=== PATIENT | male | born 1975 | race Caucasian/White ===

== ENCOUNTER 2020-03-13 17:01 | Emergency (ER) | payer MEDICAID, SELFPAY ==
--- NOTE | ~2020-03-13 | XR_ITS ---
EXAMINATION: XR wrist RT min 3V INDICATION: Right wrist pain TECHNIQUE: Four views of the right wrist are obtained. 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 No fracture is identified. Bone alignment is normal. The soft tissues are unremarkable. IMPRESSION: 1. No acute osseous abnormality. Reviewed, dictated and finalized at location A. CARDIOGRAPH TECH
[2020-03-13 17:03] VITALS: BP 162/108; PULSE 96; RESP 16; TEMP 36.4; O2SAT 99
--- NOTE | 2020-03-13 19:11 | ED.UPPEXIN ---
HPI - Extremity Injury (Upper) General Chief Complaint: Extremity Injury, Upper Stated Complaint: r hand pain Time Seen by Provider: 03/13/20 18:25 Source: patient Mode of arrival: ambulatory Limitations: no limitations History of Present Illness HPI narrative: This is a 45-year-old male that presents the emergency department for right wrist pain x1 month. Unsure of any certain injury or trauma. 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 Reports pain on the radial side of the wrist that is worse with movement. Denies decreased range of motion or numbness. Related Data Allergies Allergy/AdvReac Type Severity Reaction Status Date / Time bacitracin Allergy Intermediate Hypotension Unverified 03/13/20 17:06 neomycin Allergy Intermediate Hypotension Unverified 03/13/20 17:06 polymyxin B Allergy Intermediate Hypotension Unverified 03/13/20 17:06 Review of Systems Review of Systems: Narrative: CONSTITUTIONAL: Denies fever SKIN: Denies rash MUSCULOSKELETAL: Reports joint pain, and myalgia. NEUROLOGIC: Denies numbness All systems reviewed & are unremarkable except as noted in HPI and below PMFSH Past Medical History Medical History (Updated 03/13/20 @ 19:19 by Brenda Coto PA-C) No active medical problems Social History Social History (Updated 03/13/20 @ 19:13 by Brenda Coto PA-C) Smoking status: Current every day smoker Gender identity (if verbalized by the patient): Male Exam Narrative: Exam Narrative: GENERAL: Well-appearing, well-nourished, and in no acute distress. HEAD: Normocephalic, atraumatic. EYES: EOMI. EXTREMITIES: Normal range of motion. No edema, erythema or obvious deformity. Pain with palpation of the radial side of the right wrist and with active range of motion of the wrist. Normal sensation. Normal radial pulses SKIN: Warm, dry, no rash. NEURO: No focal deficits. Alert and oriented x3. PSYCH: Normal mood and affect Course Vital Signs Vital signs: Vital Signs Temperature 97.5 F L 03/13/20 17:03 Pulse Rate 96 03/13/20 17:03 Respiratory Rate 16 03/13/20 17:03 Blood Pressure 162/108 H 03/13/20 17:03 Pulse Oximetry 99 03/13/20 17:03 Temperature 97.5 F L 03/13/20 17:03 Pulse Rate 96 03/13/20 17:03 Respiratory Rate 16 03/13/20 17:03 Blood Pressure 162/108 H 03/13/20 17:03 Pulse Oximetry 99 03/13/20 17:03 MDM - Extremity Injury (Upper) MDM Narrative Medical decision making narrative: Patient presents the emergency department for right wrist pain present for the last month. No certain injury or trauma. Right wrist x-ray is without acute osseous abnormalities. Patient was instructed to rest, ice and take [id number] pain medication as needed. Will be given orthopedics for follow-up. Was given warnings to return to the ER Imaging Data Radiologist's impression: ITS Impressions Wrist X-Ray 03/13/20 18:48 IMPRESSION: 1. No acute osseous abnormality. Critical Care Time Critical Care Time Critical Care Time: No Discharge Plan Discharge Clinical Impression: Acute pain of right wrist Patient Disposition: Home, Self-Care Condition: Stable Instructions: Wrist Injury (ED) Additional Instructions: Return to the emergency department if you experience fever, redness and swelling of your arm, numbness, or any other symptoms that are concerning to you Rest. Elevate. Ice to the area. [id number] pain medication as needed Follow-up with orthopedics. Call to make an appointment Follow-up/Referrals: Luiz Leal MD [Physician] - 3 Days PHYSICIAN,SECURITY SYSTEMS ENGINEER [Primary Care Provider] -
== END 2020-03-13 19:31 | disposition home or self-care (01) ==
PROVIDERS: Emergency Provider Emergency Medicine
DX: M25.531 Pain in right wrist (principal); F17.200 Nicotine dependence, unspecified, uncomplicated
CPT/HCPCS: 73110; 99283

== ENCOUNTER 2020-09-06 09:41 | Emergency (ER) | payer OTHER, SELFPAY ==
--- NOTE | ~2020-09-06 | XR_ITS ---
EXAMINATION: [id number] INDICATION: Right-sided chest pain, initial encounter TECHNIQUE: A frontal view of the chest and 3 views of the right ribs were obtained. COMPARISON: None. FINDINGS: The lungs are free of acute opacities. There is no pleural effusion or pneumothorax. The ca rdiomediastinal silhouette is normal. There is an acute fracture at the anterior aspect of the right ninth rib. IMPRESSION: 1. Acute right ninth rib fracture. Reviewed, dictated and finalized at location A.
--- NOTE | ~2020-09-06 | XR_ITS ---
EXAMINATION: XR lumbar spine 2-3V DATE: 09/06/2020 10:44 INDICATION: Low back pain TECHNIQUE: Anteroposterior and lateral views of the lumbar spine, and cone-down lateral view of the l umbosacral junction were obtained. COMPARISON: None. FINDINGS: There is no fracture. There are 3 mm of retrolisthesis of L5 on S1. The vertebral body heig hts are maintained. There is severe loss of intervertebral disc space height at L5-S1. Calcified athe rosclerosis is noted. IMPRESSION: 1. Moderate lumbar spondylosis at L5-S1 without acute findings. Reviewed, dictated and finalized at location A.
[2020-09-06 09:53] VITALS: BP 148/85; PULSE 95; RESP 16; TEMP 36.9; O2SAT 98
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
== END 2020-09-06 11:20 | disposition home or self-care (01) ==
PROVIDERS: Emergency Provider Nurse Practitioner Family; PCP Physician Assistant
DX: S22.31XA Fracture of one rib, right side, initial encounter for closed fracture (principal); W11.XXXA Fall on and from ladder, initial encounter; M47.816 Spondylosis without myelopathy or radiculopathy, lumbar region; Z87.891 Personal history of nicotine dependence
CPT/HCPCS: 71101; 72100; 99214; G0463

== ENCOUNTER 2023-11-19 08:22 | Emergency (ER) | payer OTHER, SELFPAY ==
[2023-11-19 08:31] VITALS: BP 146/89; PULSE 97; RESP 19; TEMP 36.7; O2SAT 99
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
[2023-11-19] MEDS: methylPREDNISolone SOD SUCC 125 MG VIAL IM (08:46)
== END 2023-11-19 09:00 | disposition home or self-care (01) ==
PROVIDERS: Emergency Provider Nurse Practitioner; PCP Physician Assistant
DX: L23.7 Allergic contact dermatitis due to plants, except food (principal); F17.210 Nicotine dependence, cigarettes, uncomplicated; F12.90 Cannabis use, unspecified, uncomplicated; H54.61 Unqualified visual loss, right eye, normal vision left eye
CPT/HCPCS: 96372; 99213; G0463; J2919

== ENCOUNTER 2024-07-02 10:35 | Emergency (ER) | payer OTHER, SELFPAY ==
[2024-07-02 10:43] VITALS: BP 148/88; PULSE 98; RESP 18; TEMP 36.3; O2SAT 99
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
== END 2024-07-02 11:30 | disposition short-term general hospital (02) ==
PROVIDERS: Emergency Provider Nurse Practitioner Family; PCP Physician Assistant
DX: R10.31 Right lower quadrant pain (principal); F17.210 Nicotine dependence, cigarettes, uncomplicated; F12.90 Cannabis use, unspecified, uncomplicated; H54.61 Unqualified visual loss, right eye, normal vision left eye
CPT/HCPCS: 99212; G0463

== ENCOUNTER 2024-07-02 12:10 | Emergency (ER) | payer OTHER, SELFPAY ==
--- NOTE | ~2024-07-02 | CT_ITS ---
EXAMINATION: CT abdomen pelvis w con DATE: 07/02/2024 14:24 INDICATION: Right lower quadrant abdominal pain TECHNIQUE: Computed tomography (CT) of the abdomen and pelvis was performed with 100 mL Omnipaque-350 intravenous contrast. Automated exposure control and iterative reconstruction technique were employe d. The dose-length product was 1106.07 mGy-cm. COMPARISON: None FINDINGS: Mild discoid atelectasis at the lingula. Heart size is normal. Small amount of atelectatic coronary a rtery calcium. No pericardial or pleural effusion. Liver, gallbladder, spleen, pancreas, bilateral ad renal glands and kidneys are normal. Bowels including the appendix are normal. Bladder is normal. No free intraperitoneal gas or fluid. No pathologically enlarged abdominal or pelvic lymphadenopathy. Mi ld to moderate lower thoracic, mild lumbar and moderate to severe lumbosacral spondylosis. IMPRESSION: 1. No acute intra-abdominal/pelvic process. Specifically the appendix is normal. Reviewed, dictated and finalized at location A. IMPRESSION: 1. No acute intra-abdominal/pelvic process. Specifically the appendix is normal .
--- OUTSIDE RECORDS SUMMARY | 2024-07-02 12:12 | XMS_ITS | Clinical Summary ---
Author Organization [facility] Address [facility] [place] [address] Care Team Providers Care Senior Investigator Name Role Phone Unavailable Primary Care Provider Unavailabl e Immunizations Immunization Administration Dates Next Due PFIZER COVID-19 (ORIGINAL FO RMULATION, PURPLE CAP) mRNA, LNP-S, PF, 30 MCG/0.3 ML DOSE 06/17/2020,05/28/2020 Social History Tobacco Use Types Packs/Day Years Used Date Smoking Tobacco: Never Assessed Sex and Gender Information Value Date Recorded Sex Assigned at Not on file Legal Sex Male 4:05 PM CDT Gender Identity Not on file Sexual Orientation Not on file Plan of Treatment Health Maintenance Due Date Last Done Comments Colorectal Cancer Screening Colonoscopy (10 Years) 1977 Annual Physical 01/04/1980 Hepatitis C 1995 DTaP, Tdap and Td Vaccines ( 1 - Tdap) 01/04/1996 Hepatitis B Vaccines (1 of 3 - 19+ 3-dose series) 01/04/1996 COVID-19 Vaccine (3 - 2023-2 5 season) 2023 06/17/2020, 05/28/2020 Meningococcal B Vaccine Aged Out No l onger eligible based on patient's age to complete this topic Meningococcal Vaccine Aged Out No tayler era eligible based on patient's age to complete this topic Pneumococcal Vaccine: Pediatrics (0 to 5 Years) and At-Risk Patients (6 to 49 Years) Aged Out No longer eligible b ased on patient's age to complete this topic RSV Immunizations Under 20 Months Aged Out No longer eligible b ased on patient's age to complete this topic
--- OUTSIDE RECORDS SUMMARY | 2024-07-02 12:12 | XMS_ITS | Continuity of Care Document ---
Author Organization [facility] Address [address] [place] [id number] Phone Care Team Providers Care Pet Groomer Name Role Phone Administrative, Provider Unavailable Unavail able Procedures Procedure Date Work/Medical Disability Exam [employer] 2016 Advance Directives Directive Yes / No Effective Date File Name No Information Encounters Encounter Description Practice Location Reason(s) For Visit Diagnoses Date Provider Providers Copied on Encounter [facility], [address] [place] [address], [id number], tel:[phone] [facility] Other cervical disc degeneration of cervical regionOther intervertebral disc degeneration of lumbar region 7 Administrati ve Provider. [address] [place] [address], [place] [address], [place], [place], [address] [place] [address], . tel:[phone] Referring Provider: Michel Rodriguez, [address] [place] [address], [place], [address] . tel:[phone] Family History Family Member Type Diagnosis Age At Onset No Information Payers Payer name Insurance type Covered constitution party ID Authoriza tion(s) [facility] [id number] Social History Type Description Quantity Date Captured Comments Alcohol Use Details Unknown Caffeine Use Details Unknown Tobacco Use Status No Information Smoking Status No Information Sex Male Chief Complaint And Reason For Visit No Information Reason For Referral Reason For Referral No Information History Of Present Illness Encounter Date Complaint History Of Prese nt Illness No Information Functional Status Date Functional Assessmen t No Information Instructions Date Instruction Additional Infor mation No Information Assessments Type Assessment Date assessment Other cervical disc degeneration of cervical region assessment Other intervertebral disc degene ration of lumbar region Patient Care Teams Name Effective Dates (start - stop) Status Members No Information
[2024-07-02 12:31] LABS: Add Urine Microscopic? NO; Appearance Urine Clear (Clear); Basophils Absolute Auto 0.1 K/mm3 (0.0-0.1); Basophils Percent Auto 1.3 % (0.2-1.2); Bilirubin Urine Negative (Negative); Blood Urine Negative (Negative); Color Urine Yellow (Yellow); Eosinophils Absolute Auto 0.3 K/mm3 (0-0.3); Eosinophils Percent Auto 3.2 % (0-4.4); Glucose Urine UA Negative (Negative); Hematocrit 47.4 % (42.0-52.0); Hemoglobin 15.5 g/dL (14.0-18.0); Immature Granulocyte Absolute 0.02 K/mm3 (0.00-0.031); Immature Granulocyte Percent A 0.2 % (0-0.5); Ketones Urine Negative (Negative); Leukocyte Esterase Ur Negative LEU/UL (Negative); Lymphocytes Absolute Auto 2.93 K/mm3 (0.9-3.2); Lymphocytes Percent Auto 31.9 % (18.3-44.2); Mean Corpuscular HGB Conc 32.7 g/dl (32-36); Mean Corpuscular Hemoglobin 28.4 pg (26-34); Mean Platelet Volume 9.8 fl (7.4-10.4); Monocytes Absolute Auto 0.6 K/mm3 (0.1-0.6); Monocytes Percent Auto 6.8 % (2.6-8.5); Neutrophils Absolute Auto 5.2 K/mm3 (1.3-6.7); Neutrophils Percent Auto 56.6 % (45.5-73.1); Nitrate Urine Negative (Negative); Platelet Count Result 341 k/mm3 (150-375); Protein Urine Negative (Negative); Red Blood Count 5.45 M/mm3 (4.6-6.20); Red Cell Distribution Width 13.6 % (11.5-14.5); Specific Grav Ur 1.018 (1.001-1.035); Urobilinogen Urine 0.2 mg/dL (<2.0); White Blood Count 9.2 K/mm3 (4.5-10.0)
[2024-07-02 12:57] LABS: Alanine Aminotransferase 39 U/L (6-50); Albumin Level 4.5 g/dL (3.5-5.1); Alkaline Phosphatase 81 U/L (38-126); Anion Gap 9 mmol/L (4-12); Aspartate Amino Transferase 37 U/L (17-59); Bilirubin,Total 0.3 mg/dL (0.2-1.3); Blood Urea Nitrogen 15 mg/dL (9-20); Calcium 8.7 mg/dL (8.4-10.2); Carbon Dioxide 26 mmol/L (22-30); Chloride 103 mmol/L (98-107); Estimated Glomerular Filt Rate > 60; Glucose 134 mg/dL (65-110); Lipase 60 U/L (23-300); Sodium 138 mmol/L (137-145)
[2024-07-02 13:34] VITALS: BP 143/100; PULSE 105; RESP 20; TEMP 36.4; O2SAT 96
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
[2024-07-02] MEDS: HYDROcodone/acetaminophen (*CRX) 5-325 MG TABLET 1 TAB PO (14:00)
--- OUTSIDE RECORDS SUMMARY | 2024-07-02 14:19 | XMS_ITS | Clinical Summary ---
Author Organization [facility] Address [facility] [place] [address] Care Team Providers Care Restorative Care Technician Name Role Phone Unavailable Primary Care Provider [...]
--- OUTSIDE RECORDS SUMMARY | 2024-07-02 14:19 | XMS_ITS | Continuity of Care Document ---
Author Organization [facility] Address [address] [place] [id number] Phone Care Team Providers Care Clam Grader Name Role Phone Administrative, Provider Unavailable Unavail able Procedures Procedure Date Work/Medical Disability Exam [employer] 2016 Advance Directives Directive Yes / No Effective Date File Name No Information Encounters Encounter Description Practice Location Reason(s) For Visit Diagnoses Date Provider Providers Copied on Encounter [facility], [address] [place] [address], [id number], tel:[phone] [facility] Other cervical disc degeneration of cervical regionOther intervertebral disc degeneration of lumbar region 7 Administrati ve Provider. [address] [place] [address], [place] [address], [place], [place], [address] [place] [address], . tel:[phone] Referring Provider: Michel Rodriguez, [address] [place] [address], [place], [address] . tel:[phone] Family History Family Member Type Diagnosis Age At Onset No Information Payers Payer name Insurance type Covered alliance party ID Authoriza tion(s) [id number] Social History Type Description Quantity Date Captured [...]
[2024-07-02 15:11] VITALS: BP 151/99; PULSE 89; RESP 17; O2SAT 97
== END 2024-07-02 15:05 | disposition home or self-care (01) ==
PROVIDERS: Emergency Medicine; Emergency Provider Emergency Medicine; PCP Physician Assistant
DX: S39.011A Strain of muscle, fascia and tendon of abdomen, initial encounter (principal); F17.210 Nicotine dependence, cigarettes, uncomplicated; X58.XXXA Exposure to other specified factors, initial encounter
CPT/HCPCS: 36415; 74177; 80053; 81003; 83690; 85025; 99284; A9270; Q9967